=== PATIENT | male | born 1955 | race Caucasian/White ===

== ENCOUNTER → 2016-06-21 | Outpatient (CLI) | payer OTHER ==
--- NOTE | 2016-06-21 11:08 | KCIC ---
PROCEDURE Lumbar spine MRI without contrast. HISTORY Lumbar pain. Bilateral lower extremity neuropathy. TECHNIQUE Multiplanar and multi sequence magnetic resonance imaging of the lumbar spine was performed without contrast. COMPARISON None. FINDINGS There is lumbar levoscoliosis centered at L4. There is slight retrolisthesis of L2 on L3, L3 on L4, L4 on L5 and L5 on S1. There is endplate remodeling at all levels. The conus terminates at T12-L1. There is diffusely heterogeneous marrow signal intensity likely due to fatty marrow placement. There are few superimposed hemangiomas. At L1-L2, there is a left foraminal to extra foraminal disc protrusion superimposed on a disc bulge and endplate remodeling. There is mild left foraminal stenosis At L2-L3, there is a left foraminal to extra foraminal disc protrusion and osteophyte complex superimposed on a disc bulge and endplate remodeling. There is no stenosis. At L3-L4, there is a left foraminal to extra foraminal disc protrusion and osteophyte complex superimposed on a disc bulge and endplate remodeling. There is mild facet arthropathy. There is no stenosis. At L4-L5, there is a left paracentral to foraminal disc protrusion with annular tear and minimal inferior extrusion superimposed on a disc bulge and endplate remodeling. There is mild facet arthropathy. There is mild left foraminal stenosis. At L5-S1, there is a posterior central disc protrusion and annular tear superimposed on a disc bulge and endplate remodeling. There may also be a left foraminal superior disc extrusion. There is mild left facet arthropathy. There is mild to moderate left greater and minimal right foraminal stenosis. IMPRESSION 1. Multilevel degenerative change within the lumbar spine, described in detail above. This results in foraminal stenosis at the aforementioned levels. 2. Mild levoscoliosis and slight retrolisthesis at multiple levels. Electronically signed by: Deepti Hauser (Jun 21, 2016 11:07:24)
== END | disposition home or self-care (01) ==
LOC: KCIC MRI 09:58
PROVIDERS: ATTEND Family Medicine
DX: M51.36 Other intervertebral disc degeneration, lumbar region (principal); M48.06 Spinal stenosis, lumbar region; M41.86 Other forms of scoliosis, lumbar region
CPT/HCPCS: 72148

== ENCOUNTER → 2018-09-01 | Day surgery (SDC) | payer OTHER ==
[~2018-09-01] MED LIST: ALPR0.5T6 PO; CEPH-264 PO; DULO30CA2 PO; HYDR-2761 PO; IV RINGERS,LACTATED 1000ML 1,000 ML IV SCH; LIDOCAINE 1% PF 2 ML VIAL. ID PRN; LIDOCAINE 2% PF 5 ML VIAL. ONE; LISI-334 PO; METF500T16 PO; MIDAZOLAM HCL/PF 2 MG/2 ML VIAL. IV PRN; PROPOFOL 20 ML IV ONE; TAMS0.4C97 PO; fentaNYL PF VIAL 100 MCG/2 ML VIAL IV PRN
[2018-09-01 12:12] VITALS: BP 105/76
--- NOTE | 2018-09-04 13:06 | PATHOLOGY ---
[facility] Accession Number: [id number] . 01 Material submitted: . cecum - CECAL POLYP BIOPSY . 01 Clinical history: . CRC screening . 02 Diagnosis: Colon, cecum, biopsy: - Adenomatous polyp. (SKM:french; 09/04/2018) QMS/09/04/2018 . 02 Electronically signed: . Bernardo Ray MD, Pathologist NPI- [id number] . 01 Gross description: . Received in formalin labeled "Neil Law, cecum polyp BX," is a single segment of [place] soft tissue measuring 0.4 cm in maximum dimension. The specimen is entirely submitted in cassette A1. (TSD; 09/01/2018) TOB/TOB . 02 Pathologist provided ICD-10: D12.0 . 02 CPT . 004870 Specimen Comment: A courtesy copy of this report has been sent to Specimen Comment: [phone], . Specimen Comment: Report sent to / DR LEBRON Performed at: 01 [facility] [address], [place] [id number] MD German Landry MD Phone: [phone] Performed at: 02 [facility] [address], [place] [id number] MD Tim Marti MD Phone: [phone]
== END ==
LOC: ENDOS 10:43
PROVIDERS: ATTEND Internal Medicine Gastroenterology
DX: Z12.11 Encounter for screening for malignant neoplasm of colon (principal); D12.0 Benign neoplasm of cecum; K57.30 Diverticulosis of large intestine without perforation or abscess without bleeding; K64.0 First degree hemorrhoids; K29.50 Unspecified chronic gastritis without bleeding; E11.9 Type 2 diabetes mellitus without complications; K21.9 Gastro-esophageal reflux disease without esophagitis; K44.9 Diaphragmatic hernia without obstruction or gangrene; I10 Essential (primary) hypertension; F15.90 Other stimulant use, unspecified, uncomplicated; Z72.89 Other problems related to lifestyle; Z98.890 Other specified postprocedural states; Z79.84 Long term (current) use of oral hypoglycemic drugs
CPT/HCPCS: 45380; 82962; 88305; J2001; J2704